=== PATIENT | male | born 1985 ===

== ENCOUNTER 2022-08-03 05:55 | Day surgery (SDC) | payer OTHER | END 2022-08-03 14:50 | disposition home or self-care (01) | LOC: CIR.AMB 05:55 | PROVIDERS: ATTEND Otolaryngology Otology & Neurotology | DX: H71.22 Cholesteatoma of mastoid, left ear (principal); D68.9 Coagulation defect, unspecified; Z20.822 Contact with and (suspected) exposure to COVID-19; Z88.8 Allergy status to other drugs, medicaments and biological substances ==